=== PATIENT | male | born 1955 | race Caucasian/White ===

== ENCOUNTER 2020-04-23 11:58 | Emergency (ER) | payer MEDICARE, OTHER ==
[~2020-04-23] VITALS: Ht 175.3 cm; Wt 95.0 kg
[2020-04-23 12:05] VITALS: BP 157/67
[2020-04-23] MEDS ORDERED: CEPH-264 PO (12:32)
--- NOTE | 2020-04-23 12:33 | PHYS DOC ---
Past History Past Medical History: Hypertension, Other Additional Past Medical Histor: RA Past Surgical History: Pacemaker Additional Smoking Information: Vapes Alcohol Use: Rarely Adult General Chief Complaint Chief Complaint: LOWER EXTREMITY SWELLING HPI HPI Patient is a 65-year-old male who presents with right lower extremity problems. Reports distant history of cellulitis, fears it is back. Reports this was first noticed 2 days ago without any known inoculation or trauma and is worsening. Nothing known makes better or worse. Patient denies any fever or other constitutional symptoms, reports generalized redness over ventral portion of the foot that has spread to entirety of the foot up his right lower extremity past ankle. Patient does not have PCP is he just turned 65 and can no longer see physician on post. Patient presents to our ER today concerned given immunosuppressed state for taking biologic agents for autoimmune arthritis Review of Systems Review of Systems Fourteen body systems of review of systems have been reviewed. See HPI for pertinent positives and negative responses, other kimball all other systems are negative, non-pertinent or non-contributory Physical Exam Physical Exam Constitutional: Well developed, well nourished, no acute distress, non-toxic appearance. HENT: Normocephalic, atraumatic, bilateral external ears normal, oropharynx moist, no oral exudates, nose normal. Eyes: PERRLA, EOMI, conjunctiva normal, no discharge. Neck: Normal range of motion, no tenderness, supple, no stridor. Cardiovascular: Heart rate regular, sinus rhythm, no murmurs rubs or gallops Lungs & Thorax: Bilateral breath sounds clear to auscultation Abdomen: Bowel sounds normal, soft, no tenderness, no masses, no pulsatile masses. Nonsurgical abdomen, no peritoneal signs Skin: Warm, dry, no rash. Right lower extremity specifically foot to proximal portion of ankle is red and erythematous, slightly tender to palpation, no streaking or crepitus reported, good pulses of TP and DP, cap refill less than 3 seconds, clinically consistent with cellulitis Back: No tenderness, no CVA tenderness. Extremities: No tenderness, no cyanosis, no clubbing, ROM intact, no edema. Neurologic: Alert and oriented X 3, grossly normal motor & sensory function, no focal deficits noted. Psychologic: Affect normal, judgement normal, mood normal. Current Patient Data Vital Signs Vital Signs Date Time Temp Pulse Resp B/P (MAP) Pulse Ox O2 Delivery O2 Flow Rate FiO2 8/30/20 12:05 99.2 86 16 157/67 (97) 97 Room Air EKG EKG [] Radiology/Procedures Radiology/Procedures [] Course & Med Decision Making Course & Med Decision Making Ambulatory patient seen on immediate ER arrival ABCs unremarkable Comprehensive history and physical exam obtained Discussed most likely diagnosis of cellulitis, discussed no emergent/surgical findings requiring further diagnostic work-up or inpatient management at this time Discussed need for antibiotics, patient agreeable. Discussed using Bactrim inpatient without MRSA/DM history but high risk due to immunocompromise state but patient on multiple medications that could exacerbate hyperkalemia. Joint decision to use Keflex Patient educated on disease process and continued supportive care to assist with medical management of his right lower extremity cellulitis Patient given list of local primary care physicians in area to establish care for evaluation and follow-up in upcoming 1 to 10 days time. Discussed if he cannot get in in a timely manner to return to ER for medical evaluation Strict return precautions were discussed at length with good understanding by patient, all questions and concerns addressed prior to ER departure in stable condition Dragon Disclaimer Dragon Disclaimer This electronic medical record was generated, in whole or in part, using a voice recognition dictation system. Departure Departure: Impression: Primary Impression: Cellulitis of right lower extremity Disposition: HOME/RESIDENCE PRIOR TO ADM Condition: STABLE Referrals: PCP,NO (PCP) Patient Instructions: Cellulitis Additional Instructions: You were evaluated in the Emergency Department for cellulitis which is a skin infection Take the antibiotics prescribed to you in full as directed. You have been given a list of local primary care physicians to contact, please do your research, contact them and request follow-up to establish care in upcoming 1 to 10 days time Return to the Emergency Department if you experience worsening pain, persistent fevers greater than 100.4, an increase in area of redness, increased tenderness/warmth around the abscess, foul smelling discharge from the abscess, Scripts Cephalexin (KEFLEX) 500 Mg Capsule 500 MG PO Q6HRS for cellulitis for 5 Days, #20 TAB Prov: JUAN PABLO MONTES DO 04/23/20 Justification of Admission: Justification of Admission: Justification of Admission Dx: N/A JUAN PABLO MONTES DO Apr 23, 2020 12:33
== END 2020-04-23 12:40 | disposition home or self-care (01) ==
LOC: ER 11:58
DX: L03.115 Cellulitis of right lower limb (principal); I10 Essential (primary) hypertension; M06.9 Rheumatoid arthritis, unspecified; F17.220 Nicotine dependence, chewing tobacco, uncomplicated; Z95.0 Presence of cardiac pacemaker
CPT/HCPCS: 99283

== ENCOUNTER → 2021-05-10 | Outpatient (CLI) | payer MEDICARE, OTHER ==
[~2021-05-10] MED LIST: CEPH-264 PO
[2021-05-10 09:55] LABS: ALBUMIN 3.3 g/dL (3.4-5.0); CREATININE 1.3 mg/dL (0.7-1.3); GFR 55.2; POTASSIUM 4.4 mmol/L (3.5-5.1); TOTAL BILIRUBIN 0.3 mg/dL (0.2-1.0); TOTAL PROTEIN 6.7 g/dL (6.4-8.2)
== END ==
LOC: LAB 08:22
PROVIDERS: ATTEND Internal Medicine Interventional Cardiology
DX: I10 Essential (primary) hypertension (principal); E78.5 Hyperlipidemia, unspecified; Z79.899 Other long term (current) drug therapy
CPT/HCPCS: 36415; 80053; 80061

== ENCOUNTER → 2021-05-10 | Outpatient (CLI) | payer MEDICARE, OTHER ==
[2021-05-10 10:10] LABS: BASO # 0.1 x10^3/uL (0.0-0.2); BASO % 1 % (0-3); EOS # 0.1 x10^3/uL (0.0-0.7); EOS % 1 % (0-3); HEMATOCRIT 38.5 % (39.0-53.0); HEMOGLOBIN 12.7 g/dL (13.0-17.5); LYMPH # 1.7 x10^3/uL (1.0-4.8); LYMPH % 19 % (24-48); MEAN CORPUSCULAR HEMOGLOBIN 31 pg (25-35); MEAN CORPUSCULAR HGB CONC 33 g/dL (31-37); MEAN CORPUSCULAR VOLUME 94 fL (79-100); MONO # 0.7 x10^3/uL (0.0-1.1); MONO % 8 % (0-9); NEUT # 6.2 x10^3uL (1.8-7.7); NEUT % 71 % (31-73); PLATELET COUNT 344 x10^3/uL (140-400); RED BLOOD COUNT 4.08 x10^6/uL (4.30-5.70); RED CELL DISTRIBUTION WIDTH 14.9 % (11.5-14.5); WHITE BLOOD COUNT 8.7 x10^3/uL (4.0-11.0)
[2021-05-10 10:23] LABS: ALBUMIN 3.3 g/dL (3.4-5.0); C REACTIVE PROTEIN 10.3 mg/L (0-3.3); CREATININE 1.3 mg/dL (0.7-1.3); GFR 55.2; POTASSIUM 4.4 mmol/L (3.5-5.1); TOTAL BILIRUBIN 0.4 mg/dL (0.2-1.0); TOTAL PROTEIN 6.6 g/dL (6.4-8.2)
[2021-05-10 11:52] LABS: SEDIMENTATION RATE 49 (0-15)
== END ==
LOC: LAB 08:22
PROVIDERS: ATTEND Internal Medicine Rheumatology
DX: Z79.899 Other long term (current) drug therapy (principal)
CPT/HCPCS: 36415; 80053; 80061; 85025; 85651; 86140